=== PATIENT | female | born 1980 | race Two or more races ===

== ENCOUNTER 2019-09-17 06:02 | Day surgery (SDC) | payer BC ==
[2019-09-12 09:45] LABS: BASOPHILS % (AUTO) 0.5 % (0-1); EOSINOPHILS # (AUTO) 0.1 X10'3 (0-0.9); LYMPHOCYTES # (AUTO) 2.2 X10'3 (1.1-4.8); LYMPHOCYTES % (AUTO) 35.3 % (21-51); MEAN CORPUSCULAR HEMOGLOBIN 30.6 PG (27.0-31.0); MEAN CORPUSCULAR HGB CONC 34.1 g/dL (33.0-36.5); MEAN CORPUSCULAR VOLUME 89.9 FL (78-98); MEAN PLATELET VOLUME 8.4 FL (7.4-10.4); MONOCYTES # (AUTO) 0.4 X10'3 (0-0.9); NEUTROPHILS # (AUTO) 3.5 X10'3 (1.8-7.7); NEUTROPHILS % (AUTO) 56.2 % (42-75); PRE OP HEMATOCRIT 41.2 % (35.0-45.0); PRE OP HEMOGLOBIN 14.1 g/dL (12.0-16.0); PRE OP PLATELET COUNT 357 X10'3 (140-440); RED BLOOD COUNT 4.59 X10'6 (4.20-5.60); RED CELL DISTRIBUTION WIDTH 13.3 % (11.5-14.5)
[2019-09-12 09:45] LABS: CLARITY,URINE CLEAR (Clear); COLOR,URINE YELLOW (Yellow); GLUCOSE, URINE NEGATIVE (Neg); KETONES,URINE NEGATIVE (Neg); LEUKOCYTE ESTERASE ,URINE NEGATIVE (Neg); NITRITES, URINE NEGATIVE (Neg); OCCULT BLOOD,URINE MODERATE (Neg); PROTEIN,URINE NEGATIVE (Neg); UROBILINOGEN,URINE 0.2 E.U/dL (0.2-1.0)
[2019-09-12 09:53] LABS: UA COLLECTION TYPE CLN CATCH MIDSTREAM
[2019-09-12 09:54] LABS: MUCUS STRANDS MODERATE /LPF (Neg); SQUAMOUS EPITHELIAL CELL,UR FEW /LPF (FEW)
[2019-09-12 09:55] LABS: BACTERIA,URINE 1+ /HPF (Neg); WBC,URINE 0-4 /HPF (0-4)
[2019-09-12 09:59] LABS: PRE OP PROTIME 10.3 SECONDS (9.0-12.0)
[2019-09-12 10:04] LABS: ALBUMIN 3.7 G/DL (3.4-5.0); ALKALINE PHOSPHATASE 89 IU/L (46-116); BLOOD UREA NITROGEN 12 MG/DL (7-18); BUN/CREATININE RATIO 14.5 (6.6-38.0); CALCIUM 8.8 MG/DL (8.5-10.1); CHLORIDE 104 MMOL/L (99-107); CREATININE 0.83 MG/DL (0.40-0.90); PRE OP ALT 43 U/L (30-65); PRE OP ANION GAP 9 (8-16); PRE OP AST 22 U/L (10-37); PRE OP BILIRUB, TOTAL 0.4 MG/DL (0.0-1.0); PRE OP GLUCOSE 90 MG/DL (70-104); PRE OP POTASSIUM 3.9 MMOL/L (3.4-5.1); PRE OP SODIUM 140 MMOL/L (135-145); TOTAL CARBON DIOXIDE 27.5 MMOL/L (24-32); TOTAL PROTEIN 7.5 G/DL (6.4-8.2); eGFR 77 ML/MIN
[2019-09-12 10:35] LABS: HCG SERUM QL NEGATIVE
[2019-09-17] VITALS (18 sets, daily range): BP systolic 86–110; BP diastolic 57–70
[~2019-09-17] VITALS: Ht 154.9 cm; Wt 60.3 kg
[~2019-09-17 06:02] MED LIST: DOCUMENT DATE & TIME OF BETA-BLOCKER PO ONE; NO HOME MEDS; ceFOXitin sod/dextrose 2g/50ml 50 ML IV ONE; famotidine 20mg tablet PO ONE; ringers solution, lacted 1,000 ML IV SCH
[2019-09-17] MEDS ORDERED: LIDOcaine 1% (10mg/ml) 2ml vial ONE (06:22)
[2019-09-17] MEDS ORDERED: vasoPRESSIN 20 units/ml inj. ONE (06:48)
[2019-09-17] MEDS ORDERED: BUPIVAcaine/PF 2.5 mg/ml (0.25%) 30ml vial ONE (06:48)
[2019-09-17] MEDS ORDERED: LIDOcaine 1% 30ml preserv. free vial ONE (06:48)
[2019-09-17] MEDS ORDERED: morphine 10mg/ml inj. ONE (06:48)
[2019-09-17] MEDS ORDERED: ceFAZolin 1000mg inj ONE (06:48)
[2019-09-17] MEDS ORDERED: clindamycin phosphate 40gm vag cream ONE (06:48)
[2019-09-17] MEDS ORDERED: sevoflurane 250ml liquid IH ONE (08:15)
[2019-09-17] MEDS ORDERED: fentaNYL/PF 50MCG/1 ML 2ML syringe ONE (08:18)
[2019-09-17] MEDS ORDERED: MIDAZolam 5mg/ml 2ml vial ONE (08:18)
[2019-09-17] MEDS ORDERED: dexamethasone sod phosphate 4mg/ml inj. ONE (08:27)
[2019-09-17] MEDS ORDERED: LIDOcaine 2% (20mg/ml) 5ml vial ONE (08:27)
[2019-09-17] MEDS ORDERED: propofol inj 20 ML IV ONE (08:27)
[2019-09-17] MEDS ORDERED: neostigmine methylsulfate 1 MG/ML 10ml vial ONE (08:28)
[2019-09-17] MEDS ORDERED: ondansetron/PF 4mg/2ml inj ONE (08:28)
[2019-09-17] MEDS ORDERED: rocuronium 10mg/ml inj IV ONE (08:28)
[2019-09-17] MEDS ORDERED: glycopyrrolate 0.2mg/ml inj ONE (08:28)
[2019-09-17] MEDS ORDERED: ondansetron/PF 4mg/2ml inj IV PRN ×2 (08:50→10:55)
[2019-09-17] MEDS ORDERED: ringers solution, lacted 1,000 ML IV SCH (08:50)
[2019-09-17] MEDS ORDERED: fentaNYL/PF 50MCG/1 ML 2ML syringe IV PRN ×2 (08:50)
[2019-09-17] MEDS ORDERED: morphine 4 MG/ML inj SYRINge IV PRN ×2 (08:50)
[2019-09-17] MEDS ORDERED: hydrALAZINE 20mg/ml inj. IV PRN (08:50)
[2019-09-17] MEDS ORDERED: labetalol 20mg/4ml (5mg/ml) syringe IV PRN (08:50)
[2019-09-17] MEDS ORDERED: temazepam 15mg capsule PO PRN (10:55)
[2019-09-17] MEDS ORDERED: naloxone 0.4 mg/ml inj IV PRN (10:55)
[2019-09-17] MEDS ORDERED: ketorolac trometh. 30mg/ml inj. IV PRN (10:55)
[2019-09-17] MEDS ORDERED: CADD PCA waste documentation MC PRN (10:55)
[2019-09-17] MEDS ORDERED: diphenhydrAMINE 50 mg/ml inj IV PRN (10:55)
[2019-09-17] MEDS ORDERED: magnesium hydroxide 30ml (MOM) UD suspension PO PRN (10:55)
--- NOTE | 2019-09-17 10:55 | NUR ---
Received from OR via , accompanied by Anesthesiologist DR ONEAL and report given by Anesthesiolgist. AWAKENS TO VOICE. VITALS STABLE. DRESSINGS DI. CATY PAIN. ABD SOFT. GARCIA WITH CLEAR FLORECENT URINE IN BAG.
[2019-09-17] MEDS: HYDROmorphone/NS 1 mg/ml CADD 50 ML IV SCH ×7 (11:43→23:00)
--- NOTE | 2019-09-17 12:15 | NUR ---
Report called to receiving nurse. Transferred via BED Belongings . Special Issues communicated to receiving nurse. AWAKE AND ORIENTED. VITALS STABLE. DRESSINGS DI. CATY PAIN. TO SURGICAL RM 344B AT THIS TIME.
[2019-09-17] MEDS: ibuprofen 200mg tablet PO SCH ×2 (13:55→21:00)
[2019-09-17] MEDS: simethicone 80mg chew tab PO SCH ×2 (13:57→17:31)
--- NOTE | 2019-09-17 16:22 | NUR ---
Received report from Ronny PLEITEZ at Recovery room. Patient arrived to facility @ 1230. patient alert and oriented. c/o minimal pain to abdomen. Parikh cath in place bright yellow urine draining well. SCDs per protocol.
[2019-09-17] MEDS: normal saline 500ml IV soln 500 ML IV PRN ×2 (16:51→17:00)
[2019-09-17] MEDS: ringers solution, lacted 1,000 ML IV SCH ×2 (17:06→18:52)
--- NOTE | 2019-09-17 19:08 | NUR ---
Problems reprioritized. Patient report given, questions answered & plan of care reviewed with Pat RN.
--- NOTE | 2019-09-17 20:25 | NUR ---
pt c/o of nausea off & on; last doses of zofran was given at 1733; pt states she's only had sips of broth & water; pt has ambulated in hallway x2 laps; tolerated activity well; Dr Dsouza called for condition report; informed of above; no new orders given
[2019-09-18] VITALS: BP 97/59
[2019-09-18] MEDS: HYDROmorphone/NS 1 mg/ml CADD 50 ML IV SCH ×4 (01:00→07:00)
[2019-09-18] MEDS: ringers solution, lacted 1,000 ML IV SCH ×2 (01:33→10:52)
[2019-09-18] MEDS: ibuprofen 200mg tablet PO SCH ×3 (02:43→14:00)
[2019-09-18 04:00] VITALS: BP 105/63
[2019-09-18 04:48] LABS: BASOPHILS % (AUTO) 0.2 % (0-1); EOSINOPHILS % (AUTO) 0.1 % (0-6); HEMATOCRIT 35.1 % (35.0-45.0); HEMOGLOBIN 12.1 g/dl (12.0-16.0); LYMPHOCYTES # (AUTO) 1.7 X10'3 (1.1-4.8); LYMPHOCYTES % (AUTO) 13.9 % (21-51); MEAN CORPUSCULAR HGB CONC 34.5 g/dL (33.0-36.5); MEAN PLATELET VOLUME 8.9 FL (7.4-10.4); MONOCYTES # (AUTO) 0.8 X10'3 (0-0.9); MONOCYTES % (AUTO) 6.7 % (2-12); NEUTROPHILS # (AUTO) 9.9 X10'3 (1.8-7.7); NEUTROPHILS % (AUTO) 79.1 % (42-75); PLATELET COUNT 270 X10'3 (140-440); RED CELL DISTRIBUTION WIDTH 12.9 % (11.5-14.5); WHITE BLOOD COUNT 12.5 X10'3 (4.5-11.0)
[2019-09-18] MEDS: HYDROcodone/acetaminophen 5mg/325mg tablet PO PRN ×5 (05:46→18:49)
[2019-09-18 07:20] VITALS: BP 96/64
[2019-09-18] MEDS: simethicone 80mg chew tab PO SCH ×3 (08:16→18:06)
[2019-09-18 11:25] VITALS: BP 104/68
--- NOTE | 2019-09-18 15:53 | NUR ---
PATIENT BEING INTERMITTENTLY BLADDER SCANNED THROUGHOUT THE DAY WITH VERY LITTLE POST VOID RESIDUALS.
--- NOTE | 2019-09-18 18:36 | NUR ---
Received report from PRICILLA Sorenson. Patient is awake and alert on room air, in no apparent distress. Visitors at bedside. Call light and items of frequent use within reach. Will continue to monitor.
--- NOTE | 2019-09-18 18:40 | NUR ---
Problems reprioritized. Patient report given, questions answered & plan of care reviewed with PRICILLA Gallagher.
--- NOTE | 2019-09-18 18:50 | NUR ---
Patient complained of pain 7/10 on pain scale, administered pain medication per MD order. IV discontinued, post-op instructions given. Patient verbalized understanding to all teaching. Awaiting MD orders for discharge.
== END 2019-09-18 19:10 | disposition home or self-care (01) ==
LOC: PAS 06:02 → SUR 3N 11:04 → PAS 09-18 19:10
PROVIDERS: ATTEND Specialist
DX: N81.4 Uterovaginal prolapse, unspecified (principal); N80.0 Endometriosis of uterus; N39.3 Stress incontinence (female) (male); K66.0 Peritoneal adhesions (postprocedural) (postinfection); G43.909 Migraine, unspecified, not intractable, without status migrainosus; M19.90 Unspecified osteoarthritis, unspecified site; Z90.49 Acquired absence of other specified parts of digestive tract; Z79.899 Other long term (current) drug therapy; Z72.89 Other problems related to lifestyle; Z80.9 Family history of malignant neoplasm, unspecified
CPT/HCPCS: 36415; 57240; 57288; 57425; 58552; 80053; 81001; 82948; 84703; 85025; 85610; 85730; C1771; J0690; J0694; J1100; J1170; J2001; J2250; J2270; J2405; J2704; J2710; J3010; J3490; J7120; A4215; A4314; A4338; A4355; A4618; A6250; A6258; A7000; G0378

== ENCOUNTER 2019-09-19 19:04 | Emergency (ER) | payer BC, OTHER ==
[~2019-09-19] VITALS: Ht 154.9 cm; Wt 60.0 kg
[~2019-09-19 19:04] MED LIST changes: -DOCUMENT DATE & TIME OF BETA-BLOCKER PO ONE; -ceFOXitin sod/dextrose 2g/50ml 50 ML IV ONE; -famotidine 20mg tablet PO ONE; -ringers solution, lacted 1,000 ML IV SCH
[2019-09-19 19:14] VITALS: BP 138/86
[2019-09-19 19:51] LABS: CLARITY,URINE CLEAR (Clear); COLOR,URINE YELLOW (Yellow); GLUCOSE, URINE NEGATIVE (Neg); KETONES,URINE 15 mg/dl (Neg); LEUKOCYTE ESTERASE ,URINE TRACE (Neg); NITRITES, URINE NEGATIVE (Neg); OCCULT BLOOD,URINE LARGE (Neg); PH,URINE 7.5 (4.8-8.0); PROTEIN,URINE NEGATIVE (Neg); UROBILINOGEN,URINE 0.2 E.U/dL (0.2-1.0)
[2019-09-19 19:53] LABS: UA COLLECTION TYPE CLN CATCH MIDSTREAM
[2019-09-19 20:03] LABS: RBC,URINE 0-2 /HPF (0-2); WBC,URINE 0-4 /HPF (0-4)
[2019-09-19 20:04] LABS: BACTERIA,URINE NONE SEEN /HPF (Neg); MUCUS STRANDS NONE SEEN /LPF (Neg); SQUAMOUS EPITHELIAL CELL,UR MANY /LPF (FEW)
== END 2019-09-19 21:06 | disposition home or self-care (01) ==
LOC: ER 19:05
DX: R33.9 Retention of urine, unspecified (principal); R10.30 Lower abdominal pain, unspecified; Z90.49 Acquired absence of other specified parts of digestive tract; Z90.710 Acquired absence of both cervix and uterus
CPT/HCPCS: 51702; 81001; 87088; 99284

== ENCOUNTER 2020-05-15 20:32 | Emergency (ER) | payer BC ==
[~2020-05-15] VITALS: Ht 154.9 cm; Wt 59.1 kg
--- NOTE | 2020-05-15 21:50 | NUR ---
UPDATING ED MD GREEN OF PT'S 10/10 PAIN; VERBAL ORDER FOR MORPHNE, ZOFRAN AND BOLUS
[2020-05-15 21:54] LABS: CLARITY,URINE CLOUDY (Clear); COLOR,URINE YELLOW (Yellow); GLUCOSE, URINE NEGATIVE (Neg); KETONES,URINE NEGATIVE (Neg); LEUKOCYTE ESTERASE ,URINE NEGATIVE (Neg); NITRITES, URINE NEGATIVE (Neg); OCCULT BLOOD,URINE MODERATE (Neg); PH,URINE 8.5 (4.8-8.0); PROTEIN,URINE NEGATIVE (Neg); UROBILINOGEN,URINE 0.2 E.U/dL (0.2-1.0)
[2020-05-15] MEDS ORDERED: normal saline 1000ml 1,000 ML IV ONE (21:55)
[2020-05-15] MEDS ORDERED: morphine 4 MG/ML inj SYRINge IV ONE (21:55)
[2020-05-15] MEDS ORDERED: ondansetron/PF 4mg/2ml inj IV ONE ×2 (21:55→22:20)
[2020-05-15 21:56] LABS: BASOPHILS # (AUTO) 0.1 X10'3 (0-0.2); BASOPHILS % (AUTO) 0.6 % (0-1); EOSINOPHILS # (AUTO) 0.1 X10'3 (0-0.9); EOSINOPHILS % (AUTO) 0.6 % (0-6); HEMATOCRIT 38.3 % (35.0-45.0); HEMOGLOBIN 13.2 g/dl (12.0-16.0); LYMPHOCYTES % (AUTO) 48.8 % (21-51); MEAN CORPUSCULAR HGB CONC 34.4 g/dL (33.0-36.5); MEAN CORPUSCULAR VOLUME 90.1 FL (78-98); MEAN PLATELET VOLUME 8.3 FL (7.4-10.4); MONOCYTES # (AUTO) 0.7 X10'3 (0-0.9); MONOCYTES % (AUTO) 6.8 % (2-12); NEUTROPHILS # (AUTO) 4.4 X10'3 (1.8-7.7); NEUTROPHILS % (AUTO) 43.2 % (42-75); PLATELET COUNT 339 X10'3 (140-440); RED BLOOD COUNT 4.25 X10'6 (4.20-5.60); RED CELL DISTRIBUTION WIDTH 13.8 % (11.5-14.5); WHITE BLOOD COUNT 10.3 X10'3 (4.5-11.0)
[2020-05-15 21:58] LABS: UA COLLECTION TYPE CLN CATCH MIDSTREAM
[2020-05-15 21:59] LABS: AMORPHOUS PHOSPHATES 1+; BACTERIA,URINE FEW /HPF (Neg); SQUAMOUS EPITHELIAL CELL,UR FEW /LPF (FEW); WBC,URINE NONE SEEN /HPF (0-4)
[2020-05-15 22:11] LABS: ALANINE AMINOTRANSFERASE 34 U/L (12-78); ALBUMIN/GLOBULIN RATIO 1.1 (1.1-1.5); ALKALINE PHOSPHATASE 91 IU/L (46-116); AMYLASE 74 U/L (25-115); ANION GAP 15 (8-16); ASPARTATE AMINO TRANSFERASE 27 U/L (10-37); BILIRUBIN,TOTAL 0.3 MG/DL (0.1-1.0); BLOOD UREA NITROGEN 14 MG/DL (7-18); BUN/CREATININE RATIO 14.1 (6.6-38.0); CALCIUM 8.7 MG/DL (8.5-10.1); CHLORIDE 105 MMOL/L (99-107); CREATININE 0.99 MG/DL (0.40-0.90); GLUCOSE 136 MG/DL (70-104); LIPASE 213 U/L (73-393); SODIUM 143 MMOL/L (135-145); TOTAL CARBON DIOXIDE 22.8 MMOL/L (24-32); TOTAL PROTEIN 7.6 G/DL (6.4-8.2); eGFR 63 ML/MIN
--- NOTE | 2020-05-15 22:13 | NUR ---
per spenser rn, pt K+ is 3
[2020-05-15] MEDS ORDERED: ketorolac trometh. 30mg/ml inj. IV ONE (22:20)
[2020-05-15] MEDS ORDERED: proCHLORperazine 10 MG/2 ml inj IV ONE (22:20)
[2020-05-15] MEDS ORDERED: potassium Cl 20 mEq SR tablet PO STA (23:14)
[2020-05-15] MEDS ORDERED: ONDA8TAB6 PO (23:20)
[2020-05-15] MEDS ORDERED: POTA20TA19 PO (23:20)
[2020-05-15] MEDS ORDERED: HYDR-3965 PO (23:20)
[2020-05-15 23:33] VITALS: BP 98/56
== END 2020-05-15 23:34 | disposition home or self-care (01) ==
LOC: ER 20:32
DX: N20.9 Urinary calculus, unspecified (principal); E87.6 Hypokalemia; R11.2 Nausea with vomiting, unspecified; Z90.710 Acquired absence of both cervix and uterus; Z90.49 Acquired absence of other specified parts of digestive tract; Z79.899 Other long term (current) drug therapy
CPT/HCPCS: 36415; 74176; 80053; 81001; 82150; 83690; 84484; 85025; 93005; 96361; 96374; 96375; 96376; 99285; J0780; J1885; J2270; J2405; J7030